=== PATIENT | female | born 1935 | race Caucasian/White ===

== ENCOUNTER 2016-05-28 15:35 | Outpatient (RCR) | payer MEDICARE, OTHER ==
[~2016-05-28 15:35] MED LIST: AC325T PO; ALEN70TA47 PO; CALC-80 PO; CPR500T PO; GALA4TAB PO; LOSA1TAB20 PO; METR500T PO; ONDN4T PO; SIMV20TA3 PO
--- NOTE | 2016-05-28 16:20 | Diagnostic Imaging Report ---
INDICATION: Low back pain. FINDINGS: AP and lateral views of the sacrum are obtained. Note is made of disc space narrowing at L5-S1 with associated endplate spurring. Other areas of disc space narrowing in the lower lumbar spine are also present but not included on the exam. Mild angulation of the sacrum may be related to old injury. There is no abnormal lytic or sclerotic focus. IMPRESSION: Lower lumbar spondylosis. There is angulation of the lower sacrum which may be related to old fracture. No acute fracture is identified. Dictated by: Dictated on workstation # [id number]
[2016-05-28 16:25] LABS: MEAN PLATELET VOLUME 9.3 FL (7.4-10.4); RED BLOOD COUNT 4.03 10^6/uL (4.35-5.85); RED CELL DISTRIBUTION WIDTH 12.5 % (10.0-14.5); WHITE BLOOD COUNT 6.9 10^3/uL (4.3-11.0)
--- NOTE | 2016-05-28 19:55 | Diagnostic Imaging Report ---
INDICATION: Lower back pain, unknown trauma or injury. COMPARISON STUDY: CT lumbar spine from 05/25/2015. FINDINGS: Frontal and lateral views of the cervical spine demonstrate stable disc space narrowing with endplate sclerosis at L5-S1 with facet arthropathy. Milder disc space narrowing is present at L4-L5 and L2-L3. No fracture or subluxation is present. IMPRESSION: There are degenerative changes of the lumbar spine with no acute findings. Dictated by: Dictated on workstation # [id number]
== END 2016-08-26 | disposition home or self-care (01) ==
LOC: RAD 15:35 → EDSTATUS 15:43
PROVIDERS: ATTEND Nurse Practitioner
DX: K92.1 Melena (principal); M54.5 Low back pain
CPT/HCPCS: 36415; 72100; 72220; 85027

== ENCOUNTER → 2016-09-20 | Outpatient (CLI) | payer MEDICARE, OTHER ==
--- NOTE | 2016-09-26 13:41 | Diagnostic Imaging Report ---
Bilateral screening mammogram 2D views with tomosynthesis. The current study was also evaluated with a Computer Aided Detection (CAD) system. INDICATION: Screening. No current complaints stated on the questionnaire. COMPARISON: 06/10/15. FINDINGS: The breasts are composed of heterogeneously dense parenchyma which may decrease mammographic sensitivity. There are scattered benign-appearing calcifications. Allowing for technique and positional differences, no suspicious change is seen. IMPRESSION: No significant change. ACR BI-RADS Category 2: Benign findings. Result letter will be mailed to the patient. Note: At least 10% of breast cancer is not imaged by mammography. Dictated by: Dictated on workstation # [id number]
== END ==
LOC: RAD 13:11
PROVIDERS: ATTEND Internal Medicine
DX: Z12.31 Encounter for screening mammogram for malignant neoplasm of breast (principal)
CPT/HCPCS: 77067